=== PATIENT | male | born 1935 | race Caucasian/White ===

== ENCOUNTER → 2016-03-12 | Outpatient (CLI) | payer OTHER ==
[~2016-03-12] MED LIST: CILOSTAZOL50 MG PO; LIPITOR40 MG PO; LO-DOSE ASPIRIN81 M2 PO; LOPRESSOR50 MG PO; NITRO-DUR1 EAC1 TD; NORVASC10 MG PO; ZANTAC300 MG PO
== END | disposition home or self-care (01) ==
LOC: AMB 02-27 10:30
PROC: 02PYX3Z Removal of Infusion Device from Great Vessel, External Approach (ICD-10-PCS; principal; 2016-03-12)
DX: Z49.01 Encounter for fitting and adjustment of extracorporeal dialysis catheter (principal)